=== PATIENT | female | born 2000 | race Caucasian/White ===

== ENCOUNTER 2022-06-26 19:29 | Emergency (ER) | payer BC, MEDICAID, SELFPAY ==
[2022-06-26 19:57] VITALS: BP 133/74; PULSE 86; RESP 16; TEMP 36.8; O2SAT 98; BMI 30.5
--- NOTE | 2022-06-26 19:58 | HMH.EDUTC ---
[facility] [place] Disposition Clinical Impression: Yeast infection Pharyngitis Qualifiers: Pharyngitis/tonsillitis etiology: unspecified etiology Qualified Code(s): J02.9 - Acute pharyngitis, unspecified Disposition: Home, Self-Care Condition on Discharge: Good Instructions: Sore Throat, DI for Pharyngitis/Tonsillopharyngitis -- Adult, DI for Vaginal Yeast Infection Additional Instructions: Drink plenty of fluids. Take tylenol or ibuprofen for pain or fever. Take the medications as directed. Follow up with your regular doctor. GO TO THE ER FOR ANY WORSENING SYMPTOMS Prescriptions: Amoxicillin [Amoxicillin 875MG Tab] 875 mg PO Q12H #20 tab Transmission Status: Received by [facility] predniSONE [Deltasone 10mg tablet] 10 mg PO BID 3 Days #6 tab Transmission Status: Received by [facility] Fluconazole [Diflucan 150mg tab] 150 mg PO ONCE #1 tab Transmission Status: Received by [facility] Referrals: Stella Adam APRN [Primary Care Provider] - Time of Disposition: 20:01 Medical Decision Making - Medical Records Medical records reviewed: No: I reviewed the patient's medical records. - Gurmeet Inquiry Pt receiving controlled substance: No Vital Signs: 06/26/22 19:57 06/26/22 20:04 Temperature 98.2 F 98.2 F Temperature Source Oral Oral Pulse Rate 84 Pulse Rate [Left Radial] 86 Respiratory Rate 16 17 Blood Pressure 128/89 Blood Pressure [Right Arm] 133/74 Blood Pressure Mean [Right Arm] 93 02 Sat by Pulse Oximetry 98 Oxygen Delivery Method Room Air - Lab Data Lab results reviewed: Yes: I reviewed the patient's lab results. [facility] [place] HPI - General Stated complaint: sore throat Time Seen by Provider: 06/26/22 20:00 - History of Present Illness Provider Complaint: She states that she has a sore throat for the past 2 days. - Related Data Previous Rx's Medication Instructions Recorded Amoxicillin [Amoxicillin 875MG 875 mg PO Q12H #20 tab 06/26/22 Tab] Fluconazole [Diflucan 150mg tab] 150 mg PO ONCE #1 tab 06/26/22 predniSONE [Deltasone 10mg tablet] 10 mg PO BID 3 Days #6 tab 06/26/22 Allergies Allergy/AdvReac Type Severity Reaction Status Date / Time No Known Allergies Allergy Verified 06/26/22 20:00 [facility] History - Hepatitis A Screen Attestation statement:: This patient has been screened for Hepatitis A risk factors. I have reviewed the patient's past medical history: Yes ROS Obtained: Yes All systems reviewed & no additional complaints - Constitutional Constitutional: Reports chills, Denies fever(s), Reports poor appetite, Reports malaise - Eyes Eyes: Denies eye discharge - ENT Ears, Nose, Mouth, and Throat: Reports as per HPI - Cardiovascular Cardiovascular: Denies chest pain - Respiratory Respiratory: Denies chest congestion, Reports cough Physical Exam - General General appearance: alert, in no apparent distress - Head Head exam: atraumatic, normocephalic, normal inspection - Eye Eye exam: Present: normal appearance, PERRL, EOMI - ENT ENT exam: Present: mucous membranes moist, normal external ear exam - Expanded ENT Exam TM/Canal exam: Bilateral TM: erythema, bulging Nose exam: Absent: sinus tenderness Nasal speculum exam: Bilateral: normal Throat exam: Present: tonsillar erythema, tonsillomegaly, tonsillar exudate - Neck Neck exam: Present: normal inspection, full ROM, trachea midline. Absent: meningismus, lymphadenopathy - Chest Chest inspection: Present: normal inspection, symmetric chest wall rise. Absent: tenderness - Respiratory Respiratory exam: Present: normal lung sounds bilaterally. Absent: respiratory distress - Cardiovascular Cardiovascular exam: Present: regular rate, normal rhythm. Absent: JVD - Abdominal Exam Abdominal exam: Present: soft, normal bowel sounds. Absent: distention, tenderness, guarding - Extremities Exam Extremities exam: Present: normal ins
[2022-06-26 20:04] VITALS: BP 128/89; PULSE 84; RESP 17; TEMP 36.8; O2SAT 98
== END 2022-06-26 20:04 | disposition home or self-care (01) ==
PROVIDERS: Emergency Provider Nurse Practitioner Family; PCP Nurse Practitioner
DX: J02.9 Acute pharyngitis, unspecified (principal); B37.9 Candidiasis, unspecified
CPT/HCPCS: 99212; G0463